=== PATIENT | male | born 1990 | race Caucasian/White ===

== ENCOUNTER 2021-05-29 00:28 | Emergency (ER) | payer OTHER, SELFPAY ==
[2021-05-29 00:49] VITALS: BP 145/76; PULSE 76; RESP 18; TEMP 36.6; O2SAT 100
--- NOTE | 2021-05-29 02:12 | ED.UPPEXIN ---
HPI - Extremity Injury (Upper) General Chief Complaint: Extremity Injury, Upper Stated Complaint: finger lac Time Seen by Provider: 05/29/21 01:35 History of Present Illness HPI narrative: 30-year-old male presents the emergency room with mandolin injury to the right middle finger. Patient states that he was cutting vegetables, was not paying attention, and sliced his finger. Patient unable to stop the bleeding prior to arrival. Related Data Allergies Allergy/AdvReac Type Severity Reaction Status Date / Time amoxicillin Allergy Unknown Diarrhea Verified 05/29/21 00:53 Review of Systems Review of Systems: CONSTITUTIONAL: Denies fever, chills, or sweats. EYES: Denies visual changes, redness, or discharge. ENT: Denies rhinorrhea, congestion, sore throat, or otalgia. CARDIOVASCULAR: Denies chest pain, palpitations, or edema. RESPIRATORY: Denies cough or dyspnea. GASTROINTESTINAL: Denies abdominal pain, nausea, vomiting, or diarrhea. GENITOURINARY: Denies dysuria or hematuria. SKIN: Laceration to right middle finger. MUSCULOSKELETAL: Denies back pain, joint pain, or myalgia. NEUROLOGIC: Denies headache, numbness, dizziness, or weakness. PSYCHIATRIC: Denies anxiety or depression. [facility], [facility] Social History Social History Smoking status: Never smoker Alcohol intake: current Exam Narrative: GENERAL: Well-appearing, well-nourished, and in no acute distress. HEAD: Normocephalic, atraumatic. EYES: PERRLA and EOMI. ENT: Nares clear, no rhinorrhea or epistaxis. Mucous membranes moist. NECK: Supple. No adenopathy or masses. No carotid bruits or JVD CHEST: Clear to auscultation. No respiratory distress. No wheezes rales or rhonchi HEART: Regular rate and rhythm. No murmur heard. Normal peripheral pulses. ABDOMEN: Soft, nontender, nondistended, normal active bowel sounds. EXTREMITIES: Normal range of motion. No edema. SKIN: Warm, dry, no rash. Skin avulsion to the tip of the right middle finger NEURO: No focal deficits. Alert and oriented x3. PSYCH: Normal mood and affect. Course Course Emergency Course: Surgicel applied to the skin avulsion to the right middle finger. Hemostasis was achieved. Bulky dressing applied to Surgicel. Given wound care instructions Vital Signs Vital signs: Vital Signs Temperature 36.6 C 05/29/21 00:49 Pulse Rate 76 05/29/21 00:49 Respiratory Rate 18 05/29/21 00:49 Blood Pressure 145/76 H 05/29/21 00:49 Pulse Oximetry 100 05/29/21 00:49 Temperature 36.6 C 05/29/21 00:49 Pulse Rate 76 05/29/21 00:49 Respiratory Rate 18 05/29/21 00:49 Blood Pressure 145/76 H 05/29/21 00:49 Pulse Oximetry 100 05/29/21 00:49 Discharge Plan Discharge Clinical Impression: Avulsion of finger tip Patient Disposition: Home, Self-Care Condition: Stable Instructions: Antibiotic Form Additional Instructions: Keep Surgicel on wound until it falls off on its own, which should be 2 to 3 days. If bleeding continues return to the emergency room or follow-up with your PCP Follow-up/Referrals: Celestina,BRANNON Argueta [Primary Care Provider] - Time of Disposition: 02:17
[2021-05-29 02:28] VITALS: BP 127/72; PULSE 72; RESP 16; O2SAT 99
== END 2021-05-29 02:31 | disposition home or self-care (01) ==
PROVIDERS: Emergency Provider Nurse Practitioner Family; PCP Registered Nurse
DX: S61.202A Unspecified open wound of right middle finger without damage to nail, initial encounter (principal); W27.4XXA Contact with kitchen utensil, initial encounter; Y93.G1 Activity, food preparation and clean up
CPT/HCPCS: 99282